=== PATIENT | female | born 1985 | race Caucasian/White ===

== ENCOUNTER 2022-09-03 06:57 | Inpatient (IN) | payer BC ==
[~2022-09-03 06:57] MED LIST: Bupivacaine 0.5% 50 ML MDV ONE; Dexamethasone 4 MG/ML SDV ONE; Glycopyrrolate 0.2 MG/ML 5 ML MDV ONE; Lidocaine 1% with EPINEPHrine 1:100,000 50 ML MDV ONE; Neostigmine Methylsulfate 1 MG/ML 5 ML Syringe ONE; Ondansetron 4 MG/2 ML SDV ONE; Propofol 200 MG/20 ML SDV ONE; Rocuronium 50 MG/5 ML Vial ONE; Succinylcholine 200 MG/10 ML MDV ONE; cefOXitin 2 GM Vial ONE; fentaNYL 250 MCG/5 ML SDV ONE
[2022-09-03] MEDS ORDERED: Celecoxib 200 MG Cap PO ONE (07:00)
[2022-09-03] MEDS ORDERED: Scopolamine 1.5 MG Transdermal Patch TRDERM SCH (07:00)
[2022-09-03 07:23] LABS: HEMATOCRIT 41.6 % (34.3-46.0); MEAN CORPUSCULAR HGB CONC 33.7 g/dL (31.6-35.5); MEAN CORPUSCULAR VOLUME 86.1 fL (81.4-99.0); RED BLOOD CELL COUNT 4.83 M/uL (3.77-5.24); WHITE BLOOD CELL COUNT,WBC 9.6 K/uL (3.2-11.0)
[2022-09-03] MEDS ORDERED: Dextrose 5%-Lactated Ringers 1,000 ML IV SCH (07:30)
[2022-09-03 07:37] LABS: HEMOGLOBIN A1C 5.7 % (4.5-6.2)
[2022-09-03 07:57] LABS: A/G RATIO 0.9 (1.2-2.2); ALANINE AMINOTRANSFERASE,ALT 39 U/L (12-78); ALBUMIN 3.5 g/dL (3.4-5.0); ALKALINE PHOSPHATASE 88 U/L (46-116); ASPARTATE AMNIOTRANSFERASE,AST 17 U/L (15-37); BILIRUBIN TOTAL 0.3 mg/dL (0.2-1.0); BLOOD UREA NITROGEN,BUN 8 mg/dL (7-18); CALCIUM 8.8 mg/dL (8.5-10.1); CARBON DIOXIDE,CO2 24 mmol/L (21-32); CHLORIDE,CL 104 mmol/L (100-108); CREATININE 0.8 mg/dL (0.6-1.0); EST CRCL DRUG DOSING (CG) 93.63 mL/min; ESTIMATED GFR 97 mL/min (>60); FERRITIN 130 ng/ml (8-388); GLUCOSE RANDOM 108 mg/dL (74-106); MAGNESIUM 2.1 mg/dL (1.8-2.4); PHOSPHORUS 2.7 mg/dL (2.5-4.9); PROTEIN TOTAL,TP 7.5 g/dL (6.4-8.2); SODIUM,NA 138 mmol/L (140-148)
[2022-09-03] MEDS ORDERED: cefOXitin 2 GM in Sodium Chloride 0.9% 50 ML IV ONE (08:15)
[2022-09-03] MEDS ORDERED: Ketamine 500 MG/5 ML MDV IV SCH (08:30)
[2022-09-03] MEDS ORDERED: Ketamine 17 MG in Sodium Chloride 0.9% 19.83 ML IV SCH (08:30)
[2022-09-03] MEDS ORDERED: fentaNYL 250 MCG/5 ML SDV ONE (10:05)
[2022-09-03] MEDS ORDERED: fentaNYL 100 MCG/2 ML SDV ONE (11:16)
[2022-09-03] MEDS ORDERED: Non-Formulary Medication 1 Each IV ONE (12:37)
[2022-09-03] MEDS ORDERED: Labetalol 20 MG/4 ML Syringe IVPUSH PRN (13:00)
[2022-09-03] MEDS ORDERED: diphenhydrAMINE 50 MG/ML SDV IVPUSH PRN (13:00)
[2022-09-03] MEDS ORDERED: Acetaminophen 500 MG Tab PO PRN (13:00)
[2022-09-03] MEDS ORDERED: traMADol 50 MG Tab PO PRN (13:00)
[2022-09-03] MEDS ORDERED: Ondansetron 4 MG/2 ML SDV IVPUSH PRN (13:00)
[2022-09-03] MEDS ORDERED: HYDROmorphone 1 MG/ML Syringe IV PRN (13:00)
[2022-09-03] MEDS ORDERED: HYDROmorphone 0.5 MG/0.5 ML Syringe IVPUSH PRN (13:00)
[2022-09-03] MEDS ORDERED: Metoclopramide 10 MG/2 ML SDV IVPUSH PRN (13:00)
[2022-09-03] MEDS: Dextrose 5%-Lactated Ringers 1,000 ML IV SCH ×2 (13:53→23:46)
[2022-09-03] MEDS: oxyCODONE 5 MG Tab PO PRN ×2 (13:53→20:51)
[2022-09-03] MEDS ORDERED: Pantoprazole 40 MG Vial IVPUSH SCH (14:00)
[2022-09-03] MEDS: SCOPOLAMINE PATCH CHECK TOP SCH (14:08)
[2022-09-03] MEDS ORDERED: MVI, Adult with Vitamin K 10 ML, Thiamine 200 MG, Zinc/Copper/Manganese/Selenium 1 ML i... IV SCH ×4 (16:00)
[2022-09-03] MEDS: Cyclobenzaprine 10 MG Tab PO PRN (16:49)
[2022-09-03] MEDS: cefOXitin 2 GM in Sodium Chloride 0.9% 50 ML IV SCH ×2 (16:52→21:01)
[2022-09-03] MEDS: Heparin Sodium 5,000 Units/ML Vial SUBCUT SCH (18:29)
[2022-09-03] MEDS: Acetaminophen 500 MG Tab PO SCH (18:29)
[2022-09-03] MEDS: hydrOXYzine HCL 100 MG/2 ML SDV IM PRN (18:33)
[2022-09-04] MEDS: Acetaminophen 500 MG Tab PO SCH ×3 (01:55→17:18)
[2022-09-04] MEDS ORDERED: Iopamidol 612 MG/ML 30 ML SDV PO STA (01:59)
[2022-09-04] MEDS: oxyCODONE 5 MG Tab PO PRN ×4 (02:33→21:15)
[2022-09-04] MEDS: cefOXitin 2 GM in Sodium Chloride 0.9% 50 ML IV SCH ×4 (05:23→21:08)
[2022-09-04] MEDS: Heparin Sodium 5,000 Units/ML Vial SUBCUT SCH ×2 (05:24→17:17)
[2022-09-04] MEDS: hydrOXYzine HCL 100 MG/2 ML SDV IM PRN (05:26)
[2022-09-04] MEDS ORDERED: methylPREDNISolone Sodium Succinate 125 MG/2 ML SDV IVPUSH ONE (07:15)
[2022-09-04] MEDS ORDERED: Ondansetron 4 MG Tab.DIS PO PRN (07:54)
[2022-09-04] MEDS ORDERED: hydrOXYzine HCl 25 MG Tab PO PRN (07:57)
[2022-09-04] MEDS ORDERED: Dextrose 5%-Lactated Ringers 1,000 ML IV SCH (08:00)
[2022-09-04] MEDS ORDERED: methylPREDNISolone Sod Succ 60 MG in Dextrose 5% in Water 100 ML IV SCH ×2 (08:00)
[2022-09-04] MEDS: SCOPOLAMINE PATCH CHECK TOP SCH (08:40)
[2022-09-04] MEDS ORDERED: Celecoxib 200 MG Cap PO SCH (09:00)
[2022-09-04] MEDS: Cyclobenzaprine 10 MG Tab PO PRN (11:39)
[2022-09-04] MEDS ORDERED: Pantoprazole 40 MG Delayed-Release Granules 1 Packet PO SCH (12:00)
[2022-09-04] MEDS: methylPREDNISolone Sodium Succinate 125 MG/2 ML SDV IV SCH ×2 (14:19→21:03)
[2022-09-04] MEDS ORDERED: MVI, Adult with Vitamin K 10 ML, Thiamine 200 MG, Zinc/Copper/Manganese/Selenium 1 ML i... IV SCH ×4 (16:00)
[2022-09-05] MEDS: methylPREDNISolone Sodium Succinate 125 MG/2 ML SDV IV SCH ×2 (02:14→08:30)
[2022-09-05] MEDS: Acetaminophen 500 MG Tab PO SCH ×2 (02:15→10:28)
[2022-09-05] MEDS: Heparin Sodium 5,000 Units/ML Vial SUBCUT SCH (05:36)
[2022-09-05] MEDS: oxyCODONE 5 MG Tab PO PRN (05:36)
[2022-09-05] MEDS: Cyclobenzaprine 10 MG Tab PO PRN (08:24)
[2022-09-05] MEDS: SCOPOLAMINE PATCH CHECK TOP SCH (08:38)
[2022-09-05] MEDS ORDERED: Magnesium Hydroxide 400 MG/5 ML Susp 30 ML Cup PO ONE (09:00)
[2022-09-05] MEDS ORDERED: Cyanocobalamin (Vitamin B12) 1,000 MCG/ML SDV IM ONE (09:00)
== END 2022-09-05 11:00 | disposition home or self-care (01) | DRG 403 ==
LOC: JP.SDSSCHI 06:57 → JP.2SS 11:20
PROVIDERS: ADMIT Surgery; ATTEND Surgery
PROC: 0D164ZA Bypass Stomach to Jejunum, Percutaneous Endoscopic Approach (ICD-10-PCS; principal; 2022-09-03)
PROC: 0FB24ZX Excision of Left Lobe Liver, Percutaneous Endoscopic Approach, Diagnostic (ICD-10-PCS; 2022-09-03)
PROC: 0BQT4ZZ Repair Diaphragm, Percutaneous Endoscopic Approach (ICD-10-PCS; 2022-09-03)
DX: E66.01 Morbid (severe) obesity due to excess calories (principal); R16.0 Hepatomegaly, not elsewhere classified; K44.9 Diaphragmatic hernia without obstruction or gangrene; F41.1 Generalized anxiety disorder; R22.0 Localized swelling, mass and lump, head; T39.395A Adverse effect of other nonsteroidal anti-inflammatory drugs [NSAID], initial encounter; Z88.2 Allergy status to sulfonamides; Z68.43 Body mass index [BMI] 50.0-59.9, adult
CPT/HCPCS: 36415; 74240; 74240-26; 80053; 82728; 83036; 83735; 84100; 85027; 86850; 86900; 86901; 93005; A9270-GY; C9113; J0131; J0171; J0330; J0694; J1100; J1170; J1200; J1644; J2405; J2704; J2710; J2795; J2930; J3010; J3410; J3411; J3420; J3490; J7121; Q9967